=== PATIENT | male | born 1955 | race Caucasian/White ===

== ENCOUNTER 2017-01-09 11:05 | Emergency (ER) | payer BC ==
[2017-01-09 13:11] VITALS: BP 136/84
--- NOTE | 2017-01-09 13:12 | RAD ---
HISTORY: Left hand pain COMPARISONS: None VIEWS: 4, Frontal, lateral, and oblique views of the left hand FINDINGS: BONE DENSITY: Normal. BONES: There is no displaced fracture. JOINTS: There is osteoarthritis of interphalangeal joints, first CMC joint, and first MCP joint ALIGNMENT: There is no dislocation. SOFT TISSUES: Unremarkable. OTHER FINDINGS: There are small radiopaque foreign bodies at the first digit along the proximal phalanx and at the second PIP joint IMPRESSION: OSTEOARTHRITIS. SMALL RADIAL OPAQUE FOREIGN BODIES ALONG THE FIRST AND SECOND DIGITS. NO ACUTE OSSEOUS INJURY. IF SYMPTOMS PERSIST, RECOMMEND REPEAT IMAGING.
--- NOTE | 2017-01-09 13:24 | UC ---
Hand/Wrist HPI - HPI Summary HPI Summary: PT WITH 2 MONTHS OF PAIN IN LEFT 2ND, 3RD AND 4TH FINGERS. REPORTS HE GOT DRUNK ONE NIGHT AND THEN WOKE UP THE NEXT MORNING WITH THE PAIN. DOES NOT KNOW WHAT HAPPENED. THOUGHT IT WOULD GET BETTER BUT PAIN HAS BEEN PERSISTENT. HERE REQUESTING XRAYS. - History Of Current Complaint Chief Complaint: UCUpperExtremity Stated Complaint: WRIST/HAND INJURY Time Seen by Provider: 01/09/17 12:37 Hx Obtained From: Patient Onset/Duration: Sudden Onset, Lasting Weeks, Still Present Severity Initially: Moderate Pain Intensity: 4 Pain Scale Used: 0-10 Numeric Character Of Pain: Sharp, Aching Aggravating Factor(s): Movement Alleviating: Nothing Associated Signs And Symptoms: Positive: Negative Related History: Dominant Hand Right - Allergies/Home Medications Allergies/Adverse Reactions: Allergies Allergy/AdvReac Type Severity Reaction Status Date / Time No Known Allergies Allergy Verified 09/16/14 06:16 PMH/Surg Hx/FS Hx/Imm Hx Endocrine History Of: Denies: Diabetes, Thyroid Disease Cardiovascular History Of: Reports: Hypertension - CONTROL WITH MED Denies: Cardiac Disorders Respiratory History Of: Denies: COPD, Asthma GI/ History Of: Denies: Ulcer - Surgical History Surgical History: Yes Surgery Procedure, Year, and Place: 1988 LEFT INGUINAL HERNIA REPAIR, [facility] [place]. 1990 LEFT THUMB TENDON REPAIR, [facility] [place]. 1992 RIGHT FOOT SURGERY, [facility] [place]. 1989' LEFT WRIST GANGLION CYST REMOVED, [facility] [place]. 2007 RIGHT INGUINAL HERNIA REPAIR, [facility]. 2010 GIST REMOVAL, [facility]. 2007 and 2008 BILATERAL KNEE SCOPINGS, [facility] [place] - Family History Known Family History: Positive: Hypertension - Social History Alcohol Use: Rare Substance Use Type: None Smoking Status (MU): Heavy Every Day Tobacco Smoker Amount Used/How Often: 1 PPD Length of Time of Smoking/Using Tobacco: 40 YEARS Have You Smoked in the Last Year: Yes Review of Systems Constitutional: Negative Skin: Negative Cardiovascular: Negative Gastrointestinal: Negative Genitourinary: Negative Musculoskeletal: Arthralgia, Decreased ROM All Other Systems Reviewed And Are Negative: Yes Physical Exam Triage Information Reviewed: Yes Appearance: Well-Appearing, No Pain Distress, Well-Nourished Vital Signs: Initial Vital Signs Temp 98.2 F 01/09/17 11:10 Pulse 66 01/09/17 11:10 Resp 18 01/09/17 11:10 BP 142/98 01/09/17 11:10 Pulse Ox 96 01/09/17 11:10 Vital Signs Reviewed: Yes Eyes: Positive: Conjunctiva Clear ENT: Positive: Hearing grossly normal Neck: Positive: Supple Respiratory: Positive: No respiratory distress, No accessory muscle use Cardiovascular: Positive: Pulses Normal Abdomen Description: Positive: Soft Musculoskeletal: Positive: No Edema, ROM Limited @ - LEFT HAND 2ND-4TH FINGERS LIMITED FLEXION, Other: - TTP DIP JOINTS AND MIDDLE PHALANX 2ND-4TH FINGERS LEFT HAND Neurological: Positive: Alert Psychological: Positive: Age Appropriate Behavior Skin: Positive: rashes Diagnostics - Radiology LEFT HAND XRAY Xray Interpretation: Positive (See Comments) - OSTEOARTHRITIS. SMALL RADIAL OPAQUE FOREIGN BODIES ALONG THE FIRST AND SECOND DIGITS. NO ACUTE OSSEOUS INJURY Radiology Interpretation Completed By: Radiologist Hand/Wrist Course/Dx - Differential Dx/Diagnosis Provider Diagnoses: LEFT HAND OSTEOARTHRITIS Discharge - Discharge Plan Condition: Stable Disposition: HOME Patient Education Materials: Osteoarthritis (ED) Referrals: Ahmet Thibodeaux MD [Primary Care Provider] - If Needed Additional Instructions: YOUR HAND XRAY SHOWED SOME WEAR AND TEAR ARTHRITIS AND SMALL FOREIGN BODIES. NOTHING ACUTE. FOLLOW-UP WITH YOUR DOC AT THE IN.
== END 2017-01-09 13:29 | disposition home or self-care (01) ==
LOC: UCEAST 11:05
DX: M19.042 Primary osteoarthritis, left hand (principal); I10 Essential (primary) hypertension; F17.210 Nicotine dependence, cigarettes, uncomplicated
CPT/HCPCS: 99211; G0463

== ENCOUNTER 2017-04-28 12:02 | Emergency (ER) | payer BC ==
[2017-04-28 12:07] VITALS: BP 156/94
--- NOTE | 2017-04-28 16:17 | ED ---
Chelsi Rodriguez Alok, scribed for Luis E Cox MD on 04/28/17 at 1432 . Throat Pain/Nasal Congestion - HPI Summary HPI Summary: 61M presents to the ED for left eye irritation. Pt states he [place] on the [place] night when [place] water got in his eye and has noticed material the visual field of his left eye ever since. Pt also notes see green spots through his left eye. - History of Current Complaint Chief Complaint: EDEyeProblem Time Seen by Provider: 04/28/17 14:16 Hx Obtained From: Patient Onset/Duration: Lasting Days, Still Present Severity: Moderate Cough: None - Allergies/Home Medications Allergies/Adverse Reactions: Allergies Allergy/AdvReac Type Severity Reaction Status Date / Time No Known Allergies Allergy Verified 04/28/17 14:19 PMH/Surg Hx/FS Hx/Imm Hx Endocrine/Hematology History: Denies: Hx Diabetes, Hx Thyroid Disease Cardiovascular History: Reports: Hx Hypertension - CONTROL WITH MED Respiratory History: Denies: Hx Asthma, Hx Chronic Obstructive Pulmonary Disease (COPD) GI History: Reports: Hx Gastroesophageal Reflux Disease - CONTROL WITH OCCASIONAL OMEPRAZOLE OR TUMS Denies: Hx Ulcer History: Reports: Other Problems/Disorders - LEFT TESTICULAR PAIN Musculoskeletal History: Reports: Hx Arthritis Sensory History: Reports: Hx Contacts or Glasses Denies: Hx Hearing Aid Opthamlomology History: Reports: Hx Contacts or Glasses - Surgical History Surgery Procedure, Year, and Place: 1988 LEFT INGUINAL HERNIA REPAIR, [facility] [place]. 1990 LEFT THUMB TENDON REPAIR, [facility] [place]. 1992 RIGHT FOOT SURGERY, [facility] [place]. 1989' LEFT WRIST GANGLION CYST REMOVED, [facility] [place]. 2007 RIGHT INGUINAL HERNIA REPAIR, [facility]. 2010 GIST REMOVAL, [facility]. 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 Denies: Hx Human Immunodeficiency Virus (HIV), Traveled Outside the [place] in Last 30 Days - Family History Known Family History: Positive: Hypertension - Social History Occupation: Retired Lives: With Family Alcohol Use: Rare Substance Use Type: Reports: None Hx Tobacco Use: Yes Smoking Status (MU): Heavy Every Day Tobacco Smoker Amount Used/How Often: 1 PPD Length of Time of Smoking/Using Tobacco: 40 YEARS Have You Smoked in the Last Year: Yes Review of Systems Negative: Fever Positive: Other - left eye irritation and material All Other Systems Reviewed And Are Negative: Yes Physical Exam Triage Information Reviewed: Yes Vital Signs On Initial Exam: Initial Vitals Temp Pulse Resp BP Pulse Ox 98.1 F 74 18 156/94 96 04/28/17 12:04 04/28/17 12:04 04/28/17 12:04 04/28/17 12:04 04/28/17 12:04 Vital Signs Reviewed: Yes Appearance: Positive: Well-Appearing, No Pain Distress Skin: Positive: Warm, Skin Color Reflects Adequate Perfusion, Dry Head/Face: Positive: Normal Head/Face Inspection Eyes: Positive: KALPESH, Other: - Left eye: No florescent bead picker. Fundi appears normal but could not visual well at the medial aspect ENT: Positive: Normal ENT inspection Neck: Positive: Supple, Nontender Respiratory/Lung Sounds: Positive: Clear to Auscultation, Breath Sounds Present Cardiovascular: Positive: RRR Abdomen Description: Positive: Nontender, Soft Bowel Sounds: Positive: Present Musculoskeletal: Positive: Normal Neurological: Positive: Normal Psychiatric: Positive: Normal, Affect/Mood Appropriate Diagnostics - Vital Signs Vital Signs Temp Pulse Resp BP Pulse Ox 04/28/17 14:16 98.1 F 74 18 156/94 98 04/28/17 12:04 98.1 F 74 18 156/94 96 - Laboratory Lab Statement: Any lab studies that have been ordered have been reviewed, and results considered in the medical decision making process. EENT Course/Dx - Course Course Of Treatment: Mr. Ann had no flouriscein bead picker., I could see most of his retina on the left but couldn't clearly see the medial aspect. I am concerned that this is a retinal tear or detachment and spoke with Dr. Blanca who offered to evaluate Mr. Ann in his office immediately. - Diagnoses Provider Diagnoses: Retinal detachment - Provider Notifications Discussed Care Of Patient With: Ulises Blanca - Can see the patient at his office today Time Discussed With Above Provider: 14:50 Discharge - Discharge Plan Condition: Stable Disposition: HOME Referrals: Ahmet Thibodeaux MD [Primary Care Provider] - Ulises Blanca MD [Medical Doctor] - Additional Instructions: Please see Dr. Thibodeaux at his office The documentation as recorded by the scribe, Chelsi,Fernando accurately reflects the service I personally performed and the decisions made by me, Luis E Cox MD.
== END 2017-04-28 14:53 | disposition home or self-care (01) ==
LOC: ED 12:02
DX: H33.20 Serous retinal detachment, unspecified eye (principal); F17.210 Nicotine dependence, cigarettes, uncomplicated
CPT/HCPCS: 99281

== ENCOUNTER 2017-05-25 21:36 | Observation (INO) | payer BC ==
--- NOTE | 2017-05-26 01:32 | ED ---
Lower Extremity - HPI Summary HPI Summary: 61 y/o male with h/o calf cramping R calf x 2 days, noted redness, swelling of R LE today, extending from below posterior knee involving posterior calf down to midfoot. no fever, chills, otherwise feeling well, Meds- oxycodone, hep C meds. - History of Current Complaint Chief Complaint: EDExtremityLower Stated Complaint: RT LEG SWELLING Time Seen by Provider: 05/26/17 00:40 Hx Obtained From: Patient Mechanism Of Injury: Unknown Onset/Duration: Hours Severity Initially: Moderate Severity Currently: Moderate Pain Intensity: 4 Pain Scale Used: 0-10 Numeric Timing: Constant Character Of Pain: Sharp, Aching, Throbbing, Stiffness Associated Signs And Symptoms: Positive: Swelling, Redness, Knee Pain Aggravating Factor(s): Movement, Weight Bearing Alleviating Factor(s): Rest Able to Bear Weight: Yes - Allergies/Home Medications Allergies/Adverse Reactions: Allergies Allergy/AdvReac Type Severity Reaction Status Date / Time No Known Allergies Allergy Verified 04/28/17 14:19 PMH/Surg Hx/FS Hx/Imm Hx Previously Healthy: No - hep C Endocrine/Hematology History: Denies: Hx Diabetes, Hx Thyroid Disease Cardiovascular History: Reports: Hx Hypertension - CONTROL WITH MED Respiratory History: Denies: Hx Asthma, Hx Chronic Obstructive Pulmonary Disease (COPD) GI History: Reports: Hx Gastroesophageal Reflux Disease - CONTROL WITH OCCASIONAL OMEPRAZOLE OR TUMS Denies: Hx Ulcer History: Reports: Other Problems/Disorders - LEFT TESTICULAR PAIN Musculoskeletal History: Reports: Hx Arthritis Sensory History: Reports: Hx Contacts or Glasses Denies: Hx Hearing Aid Opthamlomology History: Reports: Hx Contacts or Glasses - Surgical History Surgery Procedure, Year, and Place: 1988 LEFT INGUINAL HERNIA REPAIR, [facility] [place]. 1990 LEFT THUMB TENDON REPAIR, [facility] [place]. 1992 RIGHT FOOT SURGERY, [facility] [place]. 1989' LEFT WRIST GANGLION CYST REMOVED, [facility] [place]. 2007 RIGHT INGUINAL HERNIA REPAIR, [facility]. 2010 GIST REMOVAL, [facility]. 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 Denies: Hx Human Immunodeficiency Virus (HIV), Traveled Outside the [place] in Last 30 Days - Family History Known Family History: Positive: Hypertension - Social History Alcohol Use: Rare Substance Use Type: Reports: None Hx Tobacco Use: Yes Smoking Status (MU): Heavy Every Day Tobacco Smoker Amount Used/How Often: 1 PPD Length of Time of Smoking/Using Tobacco: 40 YEARS Have You Smoked in the Last Year: Yes Review of Systems Constitutional: Negative Eyes: Negative ENT: Negative Cardiovascular: Negative Respiratory: Negative Gastrointestinal: Negative Genitourinary: Negative Positive: Arthralgia, Myalgia, Decreased ROM, Edema Positive: Rash Neurological: Negative Psychological: Normal All Other Systems Reviewed And Are Negative: Yes Physical Exam Triage Information Reviewed: Yes Vital Signs On Initial Exam: Initial Vitals Temp Pulse Resp Pulse Ox 98.2 F 81 16 95 05/25/17 21:47 05/25/17 21:47 05/25/17 21:47 05/25/17 21:47 Vital Signs Reviewed: Yes Appearance: Positive: Well-Appearing, No Pain Distress, Well-Nourished Skin: Positive: Warm, Other - moderate erythema from medial mal Respiratory/Lung Sounds: Positive: Clear to Auscultation, Breath Sounds Present Cardiovascular: Positive: Normal, RRR, Pulses are Symmetrical in both Upper and Lower Extremities Musculoskeletal: Positive: Strength/ROM Intact, Pain @ - posterior calf, knee with full extension, flexion, Caleb Sign Right - positive, Edema Right - ankle medially moderate swelling, 1+ pitting, Other - PT 2+ b/l, moderate erythema extending posterior calf to posterior knee, medial mal to midfoot, + warm, + blanching Neurological: Positive: Normal, Sensory/Motor Intact, Alert, Oriented to Person Place, Time Psychiatric: Positive: Normal AVPU Assessment: Alert Diagnostics - Vital Signs Vital Signs Temp Pulse Resp BP Pulse Ox 05/25/17 23:00 98.8 F 73 18 122/81 95 05/25/17 21:49 98 F 87 16 127/104 100 05/25/17 21:47 98.2 F 81 16 95 - Laboratory Result Diagrams: 05/26/17 01:45 05/26/17 01:45 Lab Statement: Any lab studies that have been ordered have been reviewed, and results considered in the medical decision making process. Lower Extremity Course/Dx - Course Course Of Treatment: US- negative for DVT, hosp consult, IV ABX and obs admission for monitoring of cellulitis due to extensive nature. - Diagnoses Differential Diagnosis/HQI/PQRI: Positive: Cellulitis, Compartment Syndrome, Infection Provider Diagnoses: Cellulitis of right lower leg Discharge - Discharge Plan Condition: Fair Disposition: ADMITTED TO [facility]
[2017-05-26 01:57] LABS: Hematocrit 42 % (42-52); Hemoglobin 14.1 g/dl (14.0-18.0); Mean Corpuscular HGB Conc 33 g/dl (31-36); Mean Corpuscular Hemoglobin 32 pg (27-31); Mean Corpuscular Volume 95 fL (80-94); Mean Platelet Volume 7 um3 (7.4-10.4); Red Blood Count 4.45 10^6/ul (4.0-5.4); Red Cell Distribution Width 15 % (10.5-15); White Blood Count 9.9 10^3/ul (3.5-10.8)
[2017-05-26 02:04] LABS: Add Diff/Slide Review? Slide Review Added; Comments Flag Yes
[2017-05-26 02:10] LABS: BUN/Creatinine Ratio 19.7 (8-20); C Reactive Protein 14.04 mg/L (< 5.00); Calcium 9.2 mg/dL (8.6-10.3); EGFR African American 145.1 (>60); EGFR Non-African American 112.8 (>60); Globulin 3.3 g/dL (2-4); Potassium 4.1 mmol/L (3.5-5.0); Total Bilirubin 0.4 mg/dL (0.2-1.0); Total Protein 7.3 g/dL (6.4-8.9)
[2017-05-26] MEDS ORDERED: ceFAZolin 1 GM ADVAN(*) 1 GM in NS 0.9% 50 ML* 50 ML IVPB ONE (02:15)
[2017-05-26] MEDS ORDERED: ceFAZolin 1 GM VIAL(*) ONE (02:24)
[2017-05-26 02:41] LABS: Erythrocyte Sed Rate 21 mm/Hr (0-20)
[2017-05-26] MEDS ORDERED: Acetaminophen TAB* 325 MG PO PRN (04:31)
[2017-05-26] MEDS ORDERED: oxyCODONE TAB* 5 MG TAB PO PRN (05:02)
[2017-05-26] MEDS: Heparin VIAL(*) 5000 UNITS/ML VIAL (FIVE THOUSAND) SUBCUT SCH ×2 (06:23→15:54)
[2017-05-26] MEDS: ceFAZolin 1 GM VIAL(*) 1 GM in NS 0.9% 50 ML* 50 ML IVPB SCH ×2 (08:35→15:53)
--- NOTE | 2017-05-26 08:56 | RAD ---
Indication: Right leg edema. Duplex Doppler sonography of the deep venous system of the right lower extremity deep venous system was performed. Bilaterally the common femoral veins appear patent and compressible. Right proximal greater saphenous vein, proximal deep femoral vein, femoral vein, popliteal vein, posterior tibial veins and peroneal veins appear patent and compressible. IMPRESSION: NO EVIDENCE OF DEEP VENOUS THROMBOSIS IS IDENTIFIED.
--- NOTE | 2017-05-26 12:36 | DCNOTE ---
Patient seen this afternoon. Patient reports significant improvement in swelling , erythema receded from marked area, now minimal. No fever or chills. On exam, CTA B/L, no w/r/r, RRR, s1 and s2 present, no m/g/r, abd soft, NTND, BS +, LLE with minimal erythema around the medial ankle, no edema noted, mild warmth. Will give patient additional dose of IV Ancef this afternoon and plan to discharge on Keflex. F/U with PCP.
--- NOTE | 2017-05-26 12:37 | HP ---
CC: Dr. Thibodeaux* HISTORY AND PHYSICAL: DATE OF ADMISSION: 05/26/17 CHIEF COMPLAINT: Right leg pain. HISTORY OF PRESENT ILLNESS: The patient is a 61-year-old gentleman who said over the last week or so, he started noticing his right leg was becoming red, swollen, and painful. He said that several days ago, it seemed he absolutely was not too worried, but then the pain seemed to increase over the last couple of days. He then had trouble walking on it. Today, he was on his [employer] boat fishing when he looked at his ankle up on the side of the boat and noticed it was 3 times the size of the other ankle. Due to this, he came to our emergency department for evaluation. He was discovered to have what appears to be a cellulitis. He denies any fevers or chills. Denies any chest pain or shortness of breath. PAST MEDICAL HISTORY: Significant for chronic back pain and hypertension. CURRENT MEDICATIONS: Only oxycodone 10 mg daily as needed. ALLERGIES: He has no known drug allergies. FAMILY HISTORY: Reviewed and noncontributory. SOCIAL HISTORY: He smokes a pack a day for the last 45 years. No alcohol or recreational drug use. He is retired from being a murillo. He is . He has children. His , Nessa Ann, is his healthcare proxy. REVIEW OF SYSTEMS: A 14-point review of systems was completed with the patient. All pertinent positives and negatives are in the history of present illness, otherwise it is negative. PHYSICAL EXAMINATION GENERAL: A pleasant gentleman lying in bed, in no acute distress. VITAL SIGNS: Blood pressure 134/87, pulse oxygenation 92% on room air, heart rate 68 beats per minute, temperature 98.5 degrees. HEENT: Normocephalic and atraumatic. Pupils are equal, round, and reactive to light. Moist mucous membranes. NECK: Supple. No JVD, bruits, palpable thyroid or lymphadenopathy. CHEST: Clear to auscultation and percussion bilaterally. CARDIOVASCULAR: S1, S2 appreciated. ABDOMEN: Positive bowel sounds in all 4 quadrants. Soft, nontender, and nondistended. EXTREMITIES: No cyanosis or clubbing. He has got right-sided redness, swelling , and warmth on his right calf. No discharge. SKIN: Other than the aforementioned area on his right leg, no other abnormalities. LABORATORY DATA: White count is 9.9, hemoglobin 14.1, hematocrit 42, platelets 239, sed rate 21. Sodium is 136, potassium 4.1, chloride 104, CO2 27 , BUN 14, creatinine 0.71, glucose is 84. ASSESSMENT AND PLAN: 1. Cellulitis. Start the patient on Ancef 1 g IV q.8, keep leg elevated. This should improve fairly rapidly. If not, also consider switching antibiotics and possibly venous Duplex. 2. Tobacco abuse. The patient will not be for very long, unlikely will need nicotine placement, but we will make it available if he needs it. 3. Chronic back pain. Oxycodone p.r.n. 4. DVT prophylaxis. Heparin subcu. 5. FEN. Regular diet. 6. The patient is a full code. TIME SPENT: Over 75 minutes were spent on this H and P; more than 40 minutes was spent in direct [id number] contact with the patient in evaluation, physical exam, counseling, and coordination of care. [id number]/[facility] #: [id number] PAM
[2017-05-26 15:51] VITALS: BP 145/87
--- NOTE | 2017-05-27 03:28 | DS ---
DISCHARGE SUMMARY: DATE OF ADMISSION: 05/26/17 DATE OF DISCHARGE: 05/26/17 PRIMARY CARE PHYSICIAN: Dr. Thibodeaux through the [place]. PRINCIPAL DISCHARGE DIAGNOSIS: Right lower extremity cellulitis. DISCHARGE MEDICATION REGIMEN: 1. Keflex 250 mg by mouth 4 times daily. 2. Oxycodone 5 mg by mouth every 6 hours as needed for pain. STUDIES DONE DURING HOSPITALIZATION: Right lower extremity Doppler. Impression: No evidence of [place] p venous thrombosis. HISTORY OF PRESENT ILLNESS AND HOSPITAL SUMMARY: Please see the full history and physical by Dr. Johny Barron for full details. Briefly, Mr. Ann is a 61-year-old man with a past medical history of chronic pain, who presented to the hospital with redness and swelling of his right ankle and calf. This progressed over the past few days, but significantly worsened the day prior to admission. He u nderwent a Doppler that did not show any evidence of DVT. He was diagnosed of cellulitis and starte d on IV Ancef. The patient had rapid improvement in his symptoms with near complete resolution of t he erythema and edema. He will be given an additional dose of IV antibiotics the afternoon prior to discharge and will be discharged home on oral Keflex to continue for 3 more days. He was instructe d to follow up with his PCP as an outpatient. TIME SPENT: Total time spent on this discharge was 35 minutes. This is a summary of the hospitalization, please see the full medical record for further details. [id number]/[facility] #: [id number]
== END 2017-05-26 16:40 | disposition home or self-care (01) ==
LOC: ED 21:36 → MED 05-26 04:31
PROVIDERS: ADMIT Internal Medicine; ATTEND Hospitalist
DX: L03.115 Cellulitis of right lower limb (principal); M79.604 Pain in right leg; I10 Essential (primary) hypertension; G89.29 Other chronic pain; M54.9 Dorsalgia, unspecified; Z79.899 Other long term (current) drug therapy; F17.210 Nicotine dependence, cigarettes, uncomplicated
CPT/HCPCS: 36415; 80053; 85025; 85652; 86140; 96365; 96366; 96372; 99283; G0378; J0690; J1644

== ENCOUNTER 2020-11-16 16:21 | Inpatient (IN) ==
[2020-11-16 16:52] LABS: ABS Basophils 0.1 10^3/ul (0-0.2); ABS Eosinophils 0.1 10^3/ul (0-0.6); ABS Lymphocytes 2.9 10^3/ul (1.0-4.8); ABS Monocytes 0.9 10^3/ul (0-0.8); ABS Neutrophils 7.5 10^3/ul (1.5-7.7); Eosinophil % 1.2 %; Hematocrit 42 % (42-52); Hemoglobin 14.5 g/dL (14.0-18.0); Lymphocyte % 25.4 %; Mean Corpuscular HGB Conc 34 g/dL (31-36); Mean Corpuscular Hemoglobin 31 pg (27-31); Mean Corpuscular Volume 89 fL (80-94); Mean Platelet Volume 6.5 fL (7.4-10.4); Platelet Count 494 10^3/uL (150-450); Red Blood Count 4.72 10^6 /uL (4.18-5.48); Red Cell Distribution Width 16 % (10-15); White Blood Count 11.5 10^3/uL (3.5-10.8)
[2020-11-16 17:00] LABS: Urine Appearance Cloudy; Urine Bilirubin Negative (Negative); Urine Blood Negative (Negative); Urine Color Yellow; Urine Glucose Negative (Negative); Urine Ketones Negative (Negative); Urine Nitrite Negative (Negative); Urine Protein Negative (Negative); Urine Specific Gravity 1.021 (1.010-1.030); Urine Urobilinogen Negative (Negative)
[2020-11-16 17:08] LABS: ALT 15 U/L (7-52); AST 16 U/L (13-39); Albumin 4.6 g/dL (3.2-5.2); Albumin/Globulin Ratio 1.2 (1-3); Alkaline Phosphatase 60 U/L (34-104); Anion Gap 7 mmol/L (2-11); BUN/Creatinine Ratio 19.8 (8-20); Blood Urea Nitrogen 19 mg/dL (6-24); CO2 Carbon Dioxide 26 mmol/L (22-32); Chloride 102 mmol/L (101-111); EGFR African American 95.1 (>60); EGFR Non-African American 78.6 (>60); Glucose 115 mg/dL (70-100); Potassium 4.1 mmol/L (3.5-5.0); Sodium 135 mmol/L (135-145); Total Protein 8.6 g/dL (6.4-8.9)
[2020-11-16 17:13] LABS: Urine Benzodiazepine Screen None Detected (None Detect); Urine Cannabinoids Screen Presumptive Positive (None Detect); Urine Opiates Screen None Detected (None Detect)
[2020-11-16 18:20] LABS: Acetaminophen < 15 mcg/mL; Alcohol, S < 10 mg/dL (<10); Salicylate < 2.50 mg/dL (<30)
[2020-11-16 18:27] LABS: TSH Ultra Thyroid Stim Horm 2.89 mcIU/mL (0.34-5.60)
[2020-11-16] MEDS ORDERED: LORazepam 2 mg VIAL 1 ml ONE (20:03)
[2020-11-17 13:36] LABS: ABS Basophils 0.1 10^3/ul (0-0.2); ABS Eosinophils 0.3 10^3/ul (0-0.6); ABS Lymphocytes 2.1 10^3/ul (1.0-4.8); ABS Monocytes 0.7 10^3/ul (0-0.8); ABS Neutrophils 4.8 10^3/ul (1.5-7.7); Eosinophil % 3.4 %; Hematocrit 42 % (42-52); Hemoglobin 14.4 g/dL (14.0-18.0); Lymphocyte % 25.8 %; Mean Corpuscular HGB Conc 35 g/dL (31-36); Mean Corpuscular Hemoglobin 31 pg (27-31); Mean Corpuscular Volume 91 fL (80-94); Mean Platelet Volume 6.6 fL (7.4-10.4); Platelet Count 443 10^3/uL (150-450); Red Blood Count 4.61 10^6 /uL (4.18-5.48); Red Cell Distribution Width 16 % (10-15)
[2020-11-17 13:49] LABS: Albumin/Globulin Ratio 1.1 (1-3); BUN/Creatinine Ratio 21.2 (8-20); Calcium 9.6 mg/dL (8.6-10.3); EGFR African American 109.5 (>60); EGFR Non-African American 90.5 (>60); Globulin 3.7 g/dL (2-4); Potassium 4.5 mmol/L (3.5-5.0); Total Bilirubin 0.3 mg/dL (0.2-1.0); Total Protein 7.7 g/dL (6.4-8.9)
[2020-11-17] MEDS ORDERED: Al Hydrox/Mg Hydrox/Simet LIQ 30 ML UDC PO PRN (14:10)
[2020-11-17] MEDS ORDERED: Nicotine GUM 4MG FRUIT FLAVOR PO PRN (14:10)
[2020-11-17] MEDS ORDERED: diPHENhydraMINE 25 mg TAB PO PRN (14:14)
[2020-11-17] MEDS ORDERED: Diclofenac Sod EC 25 mg TAB PO PRN (17:16)
[2020-11-17] MEDS: Nicotine PATCH 21 MG/24 HR PATCH TRANSDERM SCH (21:57)
[2020-11-17] MEDS: Vitamin THERAPEUTIC TAB PO SCH (21:58)
[2020-11-18 08:02] LABS: HDL Cholesterol 30.2 mg/dL
[2020-11-18] MEDS: Nicotine PATCH 21 MG/24 HR PATCH TRANSDERM SCH (11:59)
[2020-11-18] MEDS: Vitamin THERAPEUTIC TAB PO SCH (12:01)
[2020-11-19] MEDS: Vitamin THERAPEUTIC TAB PO SCH (07:59)
[2020-11-19] MEDS: Nicotine PATCH 21 MG/24 HR PATCH TRANSDERM SCH (08:04)
[2020-11-19 08:20] VITALS: BP 165/87
== END 2020-11-19 14:00 | disposition home or self-care (01) | DRG 885 ==
LOC: ED 16:21 → BSU 11-17 14:10
PROVIDERS: ADMIT Psychiatry & Neurology Psychiatry; ATTEND Psychiatry & Neurology Psychiatry